=== PATIENT | male | born 1950 | race Caucasian/White ===

== ENCOUNTER 2021-03-25 06:18 | Day surgery (SDC) | payer OTHER ==
[~2021-03-25] VITALS: Ht 157.5 cm; Wt 66.7 kg
[~2021-03-25 06:18] MED LIST: ASA81BEC PO; FENOFIBRATE145 M1 PO; FISH OIL 1,0001 EAC9 PO; FLUOXETINE HCL40 MG PO; HYDROCHLOROTH12.5 M2 PO; LATANOPROST 0.2.5 ML OPHTHALMIC; LIPITOR 40 MG T40 M1 PO; MELOXICAM15 MG PO; ONE-DAILY MULT1 EAC1 PO; PRINIVIL20 MG PO; TADALAFIL20 M1 PO; TIMOLOL MA0.25 %/52 OPHTHALMIC
[2021-03-25 06:55] VITALS: BP 132/72
--- NOTE | 2021-03-25 08:01 | EKG ---
[place] [address] [address] [facility] [employer] [place] [address] ELECTROCARDIOGRAM REPORT Name: CHESTER ARCHULETA Room #: 150-2 [facility] M.R.#: [id number] Admission: 03/25/21 Attend Phys: Speedy Mejia DPM Discharge: Date of : 48 Report #: [id number] [facility] Test Date: 2021-03-25 Test Time: 06:54:34 Pat Name: CHESTER ARCHULETA Department: Room: 150 2 Gender: M [employer]: LENO : 1950 Requested By: Clarita Duenas Order Number: [id number] MD: Akin Youssef Measurements Intervals [place] Rate: 75 P: 51 VA: 145 QRS: -41 QRSD: 143 T: 129 QT: 436 QTc: 487 Interpretive Statements Sinus rhythm Left bundle branch block Baseline wander in lead(s) V1,V2,V3,V4 No previous ECG available for comparison Electronically Signed On 03-25-2021 8:01:11 ASSISTANT CHIEF NURSING OFFICER by Akin Youssef [email or web address] <ELECTRONICALLY SIGNED> By: Akin Youssef MD, [facility] 03/25/21 0801 3 Akin Youssef MD, FACC /EPI
[2021-03-25] MEDS ORDERED: IBU800 MG PO (08:55)
[2021-03-25] MEDS ORDERED: CEFDINIR300 MG PO (08:55)
[2021-03-25 09:01] VITALS: BP 132/72
--- NOTE | 2021-03-31 11:41 | PATH ---
[facility] [address] [place] [address] PATHOLOGY RPT PROCEDURE Name: CHESTER VACA Room #: DEP [facility] M.R.#: [id number] Admission: 03/25/21 Date of : 48 Discharge: 03/25/21 Report #: [id number] Path Case #: [id number] [facility] Accession Number: [id number] . 01 Material submitted: . bone - BONE AND TISSUE . 01 Clinical history: . TENDON REPAIR . 02 Diagnosis: Bone and tissue, right foot, resection: - Fragments of bone, cartilage and possible synovial tissue with extensive chronic inflammation and chronic synovitis. (ANK:dorothy; 03/26/2021) QMS 03/26/2021 1119 Local . 02 Comment: The bony tissue shows trilineage hematopoiesis. No active inflammation, granulation tissue or features of acute osteomyelitis identified. . No malignancy identified. (ANK:dorothy; 03/26/2021) . 02 Electronically signed: . Latrice Canales MD, Pathologist NPI- [id number] . 01 Gross description: . The specimen is received in formalin, labeled "Chester Vaca, bone and tissue, right foot". Received are multiple fragments of pale yellow, possible bone and red-brown to light waite soft tissue measuring 1.9 x 1.4 x 0.4 cm in aggregate dimensions. The specimen is entirely submitted in cassette A1, following light decalcification. ([facility]; 03/25/2021) NRI/NRI 03/25/2021 1428 Local . 02 Pathologist provided ICD-10: M65.9 . 02 CPT . 197527, [id number] Specimen Comment: Report sent to Specimen Comment: A duplicate report has been generated due to demographic updates. Performed at: [address] [address] PATHOLOGY RPT PROCEDURE Name: CHESTER VACA Room #: DEP [facility]..#: [id number] Admission: 03/25/21 Date of : 48 Discharge: 03/25/21 Report #: [id number] Path Case #: [id number] [address] [id number] MD Marcel Xavier MD Phone: [phone] Performed at: [address] [id number] MD Miroslava Philip MD Phone: [phone]
== END 2021-03-25 09:01 | disposition home or self-care (01) ==
LOC: OR → TBA 06:23 → OR 09:01
PROVIDERS: ATTEND Podiatrist Foot & Ankle Surgery
DX: M86.671 Other chronic osteomyelitis, right ankle and foot (principal); M65.861 Other synovitis and tenosynovitis, right lower leg; R93.6 Abnormal findings on diagnostic imaging of limbs; I10 Essential (primary) hypertension; E78.5 Hyperlipidemia, unspecified; F32.9 Major depressive disorder, single episode, unspecified; F41.9 Anxiety disorder, unspecified; G47.30 Sleep apnea, unspecified; I25.10 Atherosclerotic heart disease of native coronary artery without angina pectoris; M19.90 Unspecified osteoarthritis, unspecified site; Z98.890 Other specified postprocedural states; Z79.899 Other long term (current) drug therapy; Z85.820 Personal history of malignant melanoma of skin; Z85.46 Personal history of malignant neoplasm of prostate; Z20.822 Contact with and (suspected) exposure to COVID-19
CPT/HCPCS: 50010; 50101; 50386; 56526; 57091; 57178; 62110; 62850; 70005